=== PATIENT | male | born 1970 | race African-American/Black ===

== ENCOUNTER 2023-09-28 11:23 | Emergency (ER) | payer OTHER ==
[~2023-09-28] VITALS: Ht 177.8 cm; Wt 113.6 kg
[2023-09-28 11:31] VITALS: TEMP 98.4
[2023-09-28] MEDS ORDERED: BACL10TA PO (11:33)
[2023-09-28] MEDS ORDERED: LOSA-381 PO (11:33)
[2023-09-28] MEDS ORDERED: HYDR25TA2 PO (11:33)
[2023-09-28] MEDS: TraMADol HCL 50 MG TABLET PO ONE (15:06)
[2023-09-28 15:30] VITALS: BP 141/86; PULSE 77; RESP 17
== END 2023-09-28 15:56 | disposition home or self-care (01) ==
LOC: EMS 11:23
DX: S46.911A Strain of unspecified muscle, fascia and tendon at shoulder and upper arm level, right arm, initial encounter (principal); I10 Essential (primary) hypertension; Z98.890 Other specified postprocedural states; X58.XXXA Exposure to other specified factors, initial encounter; Y93.89 Activity, other specified; Y92.89 Other specified places as the place of occurrence of the external cause; Y99.8 Other external cause status
CPT/HCPCS: 99283